=== PATIENT | male | born 1940 | race Hispanic/Latino ===

== ENCOUNTER 2023-09-30 10:02 | Day surgery (SDC) | payer OTHER ==
[2023-09-28 14:27] LABS: BASOPHILS # (AUTO) 0.01 K/uL (0.00-0.20); BASOPHILS % (AUTO) 0.1 % (0.0-5.0); EOSINOPHILS % (AUTO) 1.4 % (0.0-8.0); HEMATOCRIT 41.7 % (42-54); IMMATURE GRANULOCYTE ABSOLUTE 0.02 K/uL (0-1); LYMPHOCYTES % (AUTO) 42.3 % (21.0-51.0); MEAN CORPUSCULAR HEMOGLOBIN 32.3 pg (27.0-33.0); MEAN CORPUSCULAR HGB CONC 34.8 g/dL (32.0-36.0); MEAN CORPUSCULAR VOLUME 92.9 fL (79-99); MONOCYTES # (AUTO) 0.6 K/uL (0.1-1.0); NEUTROPHILS # (AUTO) 3.4 K/uL (1.8-7.7); NEUTROPHILS % (AUTO) 47.9 % (40.0-77.0); PLATELET COUNT (AUTO) 165 K/uL (130-400); RED BLOOD CELL COUNT(AUTO) 4.49 MIL/uL (4.50-6.20); RED CELL DISTRIBUTION WIDTH 13.2 % (11.0-15.5); WHITE BLOOD COUNT (AUTO) 7.1 K/uL (4.8-10.8)
[2023-09-28 14:31] VITALS: BP 139/50; PULSE 94; RESP 18
[2023-09-28 14:40] LABS: INR 0.94 (0.85-1.15); PROTHROMBIN TIME 10.2 SEC (9.6-11.6)
[2023-09-28 14:42] LABS: PARTIAL THROMBOPLASTIN TIME 27.9 SEC (26.3-35.5)
[2023-09-28 14:43] LABS: CREATININE 0.9 mg/dL (0.5-1.3)
[2023-09-30] VITALS (14 sets, daily range): BP systolic 109–134; BP diastolic 40–108; PULSE 70–82; RESP 14–19
[~2023-09-30] VITALS: Ht 170.2 cm; Wt 74.8 kg
[~2023-09-30 10:02] MED LIST: AMLO1CAP PO; FINA5TAB41 PO; TAMS0.4C32 PO
[2023-09-30] MEDS ORDERED: CEFTRIAXONE 1G VIAL ONE (10:41)
[2023-09-30] MEDS ORDERED: LACTATED RINGERS 1000ML 1,000 ML IV ONE (10:41)
[2023-09-30] MEDS ORDERED: DEXAMETHASONE SOD PHOSPHATE 10MG/ML 1ML VIAL ONE (11:18)
[2023-09-30] MEDS ORDERED: LIDOCAINE PF 100MG/5ML (2%) SYRINGE 5ML ONE (11:18)
[2023-09-30] MEDS ORDERED: NEOSTIGMINE METHYLSULFATE 1MG/ML IV ONE (11:19)
[2023-09-30] MEDS ORDERED: SUCCINYLCHOLINE CHLORIDE 20 MG/ML 10 ML VIAL ONE (11:19)
[2023-09-30] MEDS ORDERED: ROCURONIUM BROMIDE 10MG/1ML 5ML VL ONE ×2 (11:19→11:56)
[2023-09-30] MEDS ORDERED: GLYCOPYRROLATE 0.2 MG/ML 5 ML VIAL ONE (11:19)
[2023-09-30] MEDS ORDERED: PROPOFOL 10 MG/ML 20ML VIAL IV ONE (11:20)
[2023-09-30] MEDS ORDERED: FENTANYL CITRATE PF 50 MCG/1 ML 2ML VIAL ONE ×2 (11:20→12:48)
[2023-09-30] MEDS: CEFTRIAXONE 1G VIAL IVPB ONE (11:40)
[2023-09-30] MEDS ORDERED: PHENYLEPHRINE HCL 10 MG/ML 1ML VIAL IV ONE (11:47)
[2023-09-30] MEDS ORDERED: SUGAMMADEX SODIUM 200 MG/2 ML VIAL IV ONE (12:54)
[2023-09-30] MEDS: IPRATROPIUM/ALBUTEROL SULFATE 3 ML SOLUTION IH ONE (13:32)
[2023-09-30] MEDS: PHENAZOPYRIDINE HCL 200 MG TABLET ONE (14:04)
== END 2023-09-30 14:45 | disposition home or self-care (01) ==
LOC: DAH 10:02
PROVIDERS: ATTEND Urology
DX: N40.1 Benign prostatic hyperplasia with lower urinary tract symptoms (principal); N41.1 Chronic prostatitis; R39.15 Urgency of urination; R35.0 Frequency of micturition; R35.1 Nocturia; Z79.01 Long term (current) use of anticoagulants; Z79.899 Other long term (current) drug therapy
CPT/HCPCS: 80048; 85025; 85610; 85730; 36415; 93005; 52648; 88305; 94640; A6260; A4663; J7120 ×2; A4354; J3010 ×2; J1100; J0330; J3490 ×3; J2001; J0696 ×2; J2704; J2710; J2371; A4358; A4215; A4223; A4213; A4222; A4221; A4600; A4510